=== PATIENT | male | born 1985 | race African-American/Black ===

== ENCOUNTER 2018-08-27 03:08 | Emergency (ER) | payer OTHER ==
[2018-08-27] MEDS: FLUORESCEIN STRIP BOTH EYES (04:49)
[2018-08-27] MEDS: TETRACAINE 0.5% 4 ML OPH BOTH EYES (04:50)
[2018-08-27] MEDS: DIPHTH/TET/ACEL PERTUSS (ADULT) 0.5 ML VIAL IM* (04:50)
[2018-08-27] MEDS: CEFTRIAXONE 1 GM/50 ML (PMX) 50 ML IVPB (09:32)
[2018-08-27] MEDS: HYDROmorphONE 0.5 MG/0.5 ML SYG IV (09:34)
[2018-08-27] MEDS: ONDANSETRON 4 MG INJ IV (09:34)
== END 2018-08-27 11:55 | disposition short-term general hospital (02) ==
LOC: FTE 03:08 → E/R 11:55
DX: S02.109A Fracture of base of skull, unspecified side, initial encounter for closed fracture (principal); S02.92XA Unspecified fracture of facial bones, initial encounter for closed fracture; S06.0X0A Concussion without loss of consciousness, initial encounter; S05.92XA Unspecified injury of left eye and orbit, initial encounter; S02.40FA Zygomatic fracture, left side, initial encounter for closed fracture; R40.2142 Coma scale, eyes open, spontaneous, at arrival to emergency department; R40.2362 Coma scale, best motor response, obeys commands, at arrival to emergency department; R40.2252 Coma scale, best verbal response, oriented, at arrival to emergency department; F17.210 Nicotine dependence, cigarettes, uncomplicated; Y04.0XXA Assault by unarmed brawl or fight, initial encounter
CPT/HCPCS: 70450; 70486; 71046; 72125; 73030-RT; 90715; 96374; 96375; 99285-25